=== PATIENT | female | born 1980 | race Two or more races ===

== ENCOUNTER 2017-06-18 21:12 | Emergency (ER) | payer OTHER ==
[~2017-06-18 21:12] MED LIST: HYDR-2376 PO; SYMB80AE INH
[2017-06-18 21:14] VITALS: BP 154/75; PULSE 85; RESP 16; TEMP 98; O2SAT 96
[2017-06-18] MEDS ORDERED: VENTAER INH (21:50)
[2017-06-18] MEDS ORDERED: SODIUM CHLOR 0.9% 1000 ML INJ 1,000 ML IV SCH (21:53)
[2017-06-18] MEDS ORDERED: MORPHINE SULFATE 4 MG/ML INJ IV PUSH ONE (22:00)
[2017-06-18] MEDS ORDERED: ONDANSETRON HCL 4 MG/2 ML VIAL IVP ONE (22:00)
[2017-06-18 22:02] VITALS: BP 119/70; PULSE 74; RESP 16; O2SAT 98
--- NOTE | 2017-06-18 22:19 | PD ---
HPI Chief Complaint: Abdominal Pain Time Seen by Provider: 21:42 Travel History International Travel<30 days: No Contact w/Intl Traveler<30days: No Traveled to known affect area: No History of Present Illness HPI 36-year-old female that presents to the ED for evaluation of right lower quadrant abdominal pain. Per patient he goes to the right flank. Per patient she's had this since Thursday. Per patient is not getting better. She went to the urgent care at [place] today and had a urine test that showed positive blood. The doctor at the time told her to come here to the ED to get evaluated for possible kidney stones versus ovarian cyst. Per patient she has a history of both. She has a history of hysterectomy secondary to fibroid tumor which was removed. She still has her ovaries. She states that the pain comes and goes but now is more severe which is what prompted her to come to the ER. She was prescribed Lortab by the provider at the urgent care. She did not fill it yet as she was told to come here to get evaluated. She denies any bowel movement issues. No urinary issues. Pain per patient is a out of 10 and states mainly on the right lower quadrant. Denies any vaginal discharge. No allergies to medication. No vaginal bleeding. PFSH Past Medical History Asthma: Yes Kidney Stones: Yes Tetanus Vaccination: < 5 Years Influenza Vaccination: No ?: Not Ovarian Cysts: Yes Past Surgical History Hysterectomy: Yes (partial) Social History Alcohol Use: Yes (SOCAIL) Tobacco Use: No Substance Use: No Allergies-Medications (Allergen,Severity, Reaction): Coded Allergies: No Known Drug Allergies (Verified Allergy, Unknown, 06/18/17) Reported Meds & Prescriptions Reported Meds & Active Scripts Active Hydrocodone-Acetaminophen 7.5-300 Mg Tab 1 Tab PO Q4H PRN Reported Ventolin Hfa 18 GM Inh (Albuterol Sulfate) 90 Mcg/Act Aer 2 Puff INH Q4-6H PRN Symbicort Inh (Budesonide/Formoterol Fumarate) 80-4.5 Mcg/Act Aero 2 Puff INH Q12HR Review of Systems Except as stated in HPI: all other systems reviewed are Neg Physical Exam Narrative GENERAL: SKIN: Warm and dry. HEAD: Atraumatic. Normocephalic. EYES: Pupils equal and round. No scleral icterus. No injection or drainage. ENT: No nasal bleeding or discharge. Mucous membranes pink and moist. Tongue is midline. No uvula deviation. NECK: Trachea midline. No JVD. CARDIOVASCULAR: Regular rate and rhythm. No murmurs, S3, S4. RESPIRATORY: No accessory muscle use. Clear to auscultation. Breath sounds equal bilaterally. GASTROINTESTINAL: Abdomen soft, tender to palpation the right lower quadrant, nondistended. Hepatic and splenic margins not palpable. MUSCULOSKELETAL: Extremities without clubbing, cyanosis, or edema. No obvious deformities. Full range of motion of the upper and lower extremities bilaterally. 2+ pulses bilaterally. NEUROLOGICAL: Awake and alert. No obvious cranial nerve deficits. Motor grossly within normal limits. Five out of 5 muscle strength in the arms and legs. Normal speech. PSYCHIATRIC: Appropriate mood and affect; insight and judgment normal. Data Data Last Documented VS Vital Signs Date Time Temp Pulse Resp B/P (MAP) Pulse Ox O2 Delivery O2 Flow Rate FiO2 06/18/17 22:02 74 16 119/70 (86) 98 Room Air 06/18/17 21:14 98.0 Orders Orders Complete Blood Count With Diff (06/18/17 21:53) Comprehensive Metabolic Panel (06/18/17 21:53) Lipase (06/18/17 21:53) Urinalysis - C+S If Indicated (06/18/17 21:53) Ct Abd/Pel W/O Iv Contrast (06/18/17 21:53) Iv Access Insert/Monitor (06/18/17 21:53) Morphine Inj (Morphine Inj) (06/18/17 22:00) Ondansetron Inj (Zofran Inj) (06/18/17 22:00) Sodium Chlor 0.9% 1000 Ml Inj (Ns 1000 M (06/18/17 21:53) Ed Discharge Order (06/18/17 23:13) Labs Laboratory Tests Test 06/18/17 22:00 White Blood Count 8.2 TH/MM3 Red Blood Count 4.90 MIL/MM3 Hemoglobin 13.8 GM/DL Hematocrit 41.2 % Mean Corpuscular Volume 84.0 FL Mean Corpuscular Hemoglobin 28.1 PG Mean Corpuscular Hemoglobin Concent 33.5 % Red Cell Distribution Width 14.6 % Platelet Count 362 TH/MM3 Mean Platelet Volume 6.7 FL Neutrophils (%) (Auto) 52.0 % Lymphocytes (%) (Auto) 33.1 % Monocytes (%) (Auto) 7.4 % Eosinophils (%) (Auto) 6.7 % Basophils (%) (Auto) 0.8 % Neutrophils # (Auto) 4.3 TH/MM3 Lymphocytes # (Auto) 2.7 TH/MM3 Monocytes # (Auto) 0.6 TH/MM3 Eosinophils # (Auto) 0.5 TH/MM3 Basophils # (Auto) 0.1 TH/MM3 CBC Comment DIFF FINAL Differential Comment Urine Color YELLOW Urine Turbidity CLEAR Urine pH 6.5 Urine Specific [place] 1.024 Urine Protein NEG mg/dL Urine Glucose (UA) NEG mg/dL Urine Ketones NEG mg/dL Urine Occult Blood SMALL Urine Nitrite NEG Urine Bilirubin NEG Urine Urobilinogen LESS THAN 2.0 MG/DL Urine Leukocyte Esterase NEG Urine RBC 7 /hpf Urine WBC LESS THAN 1 /hpf Urine Squamous Epithelial Cells <1 /hpf Urine Bacteria RARE /hpf Urine Mucus FEW /lpf Microscopic Urinalysis Comment CULT NOT INDICATED Blood Urea Nitrogen 12 MG/DL Creatinine 0.80 MG/DL Random Glucose 114 MG/DL Total Protein 8.1 GM/DL Albumin 3.7 GM/DL Calcium Level 8.9 MG/DL Alkaline Phosphatase 64 U/L Aspartate Amino Transf (AST/SGOT) 20 U/L Alanine Aminotransferase (ALT/SGPT) 32 U/L Total Bilirubin 0.2 MG/DL Sodium Level 137 MEQ/L Potassium Level 3.5 MEQ/L Chloride Level 102 MEQ/L Carbon Dioxide Level 27.2 MEQ/L Anion Gap 8 MEQ/L Estimat Glomerular Filtration Rate 82 ML/MIN Lipase 150 U/L [facility] Medical Decision Making Medical Screen Exam Complete: Yes Emergency Medical Condition: Yes Medical Record Reviewed: Yes Interpretation(s) CBC & BMP Diagram 06/18/17 22:00 Total Protein 8.1, Albumin 3.7, Calcium Level 8.9, Alkaline Phosphatase 64, Aspartate Amino Transf (AST/SGOT) 20, Alanine Aminotransferase (ALT/SGPT) 32, Total Bilirubin 0.2 Urine negative other than blood. Last Impressions Abdomen/Pelvis CT 06/18/17 294 Signed Impressions: Service Date/Time: June 22:08 - CONCLUSION: Normal examination. Donnie Ramirez Jr., MD Differential Diagnosis Ovarian cyst versus kidney stone versus UTI versus pyelonephritis versus appendicitis less likely versus acute on chronic pain versus gastroenteritis Narrative Course 36-year-old female that presents to the ED for evaluation of right lower quadrant pain. Patient was properly examined and was found to have signs and symptoms of unclear etiology but possible kidney stone unlikely. Patient had a urine that was positive for blood recently. Labs and imaging were ordered. Patient was given IV pain medications and antiemetics. Labs and imaging show no sign of acute disease. Case was discussed in my attending Dr. Mendiola who evaluated the patient himself in the room. He discussed the case with the patient and recommends follow-up outpatient. Patient was already given Lortab by previous provider. At this time rule out ibuprofen for her pain. She was told to follow with [facility] outpatient. See ED worsening symptoms. Follow with PCP. Diagnosis Primary Impression: Abdominal pain Qualified Codes: R10.30 - Lower abdominal pain, unspecified Patient Instructions: General Instructions, Narcotic given in the ED Additional Instructions: Take medications as prescribed. Follow-up with PCP. See ED for any worsening symptoms. Do not drink or drive while taking pain medication. Apply ice or heat as needed for pain Med/Other Pt SpecificInfo: Prescription(s) given Disposition: 01 DISCHARGE HOME Condition: Stable Rylan Byrd Jun 18, 2017 22:19
[2017-06-18 22:20] LABS: AUTOMATED NEUTROPHIL # 4.3 TH/MM3 (1.8-7.7); BACTERIA, URINE RARE /hpf; BASOPHIL # 0.1 TH/MM3 (0-0.2); BASOPHIL % 0.8 % (0.0-2.0); BLOOD, URINE SMALL (NEG); COMMENT (UR) CULT NOT INDICATED; CULTURE IF INDICATED CULT NOT INDICATED; EOSINOPHIL # 0.5 TH/MM3 (0-0.4); EOSINOPHIL % 6.7 % (0.0-4.0); GLUCOSE,URINE NEG (NEG); HEMATOCRIT 41.2 % (35.0-46.0); HEMO FLAGS DIFF FINAL; KETONE, URINE NEG (NEG); LYMPH % 33.1 % (9.0-44.0); LYMPHOCYTE # 2.7 TH/MM3 (1.0-4.8); MEAN CORPUSCULAR HEMOGLOBIN 28.1 PG (27.0-34.0); MEAN CORPUSCULAR HGB CONC 33.5 % (32.0-36.0); MONO % 7.4 % (0.0-8.0); MUCUS URINE FEW /lpf (OCC); NITRITE,URINE NEG (NEG); PH, URINE 6.5 (5.0-8.5); PLATELET COUNT 362 TH/MM3 (150-450); RED CELL DISTRIBUTION WIDTH 14.6 % (11.6-17.2); SQUAMOUS EPITHELIAL CELL URINE <1 /hpf (0-5); URINE COLOR YELLOW (YELLW/STRAW); WHITE BLOOD COUNT 8.2 TH/MM3 (4.0-11.0)
--- NOTE | 2017-06-18 22:25 | RADRPT ---
EXAM DATE/TIME: 06/18/2017 22:08 [facility] COMPARISON: No previous studies available for comparison. INDICATIONS : Right lower quadrant pain since [place]. Evaluate for renal stone ORAL CONTRAST: No oral contrast ingested. RADIATION DOSE: 8.57 CTDIvol (mGy) MEDICAL HISTORY : Renal calculi. Asthma SURGICAL HISTORY : Hysterectomy. ENCOUNTER: Initial ACUITY: 4 - 6 days PAIN SCALE: 10/10 LOCATION: Right lower quadrant TECHNIQUE: Volumetric scanning of the abdomen and pelvis was performed. Using automated exposure control and ad justment of the mA and/or kV according to patient size, radiation dose was kept as low as reasonably achievable to obtain optimal diagnostic quality images. DICOM format image data is available electro nically for review and comparison. FINDINGS: LOWER LUNGS: The visualized lower lungs are clear. LIVER: Homogeneous density without lesion. There is no dilation of the biliary tree. No calcified gallston es. SPLEEN: Normal size without lesion. PANCREAS: Within normal limits. KIDNEYS: Normal in size and shape. There is no mass, stone, or hydronephrosis. ADRENAL GLANDS: Within normal limits. VASCULAR: There is no aortic aneurysm. BOWEL/MESENTERY: The stomach, small bowel, and colon demonstrate no acute abnormality. There is no free intraperitone al air or fluid. The appendix is normal by CT criteria. ABDOMINAL WALL: Within normal limits. RETROPERITONEUM: There is no lymphadenopathy. BLADDER: No wall thickening or mass. REPRODUCTIVE: Within normal limits. INGUINAL: There is no lymphadenopathy or hernia. MUSCULOSKELETAL: Within normal limits for patient age. CONCLUSION: Normal examination. Donnie Ramirez Jr., MD on June 18, 2017 at 22:22 Board Certified Radiologist. This report was verified electronically.
[2017-06-18 22:27] LABS: ANION GAP 8 MEQ/L (5-15); AST (GOT) 20 U/L (15-37); BICARBONATE 27.2 MEQ/L (21.0-32.0); BLOOD UREA NITROGEN 12 MG/DL (7-18); CHLORIDE 102 MEQ/L (98-107); GLOMERULAR FILTRATION RATE 82 ML/MIN (>89); POTASSIUM 3.5 MEQ/L (3.5-5.1); SODIUM (NA) 137 MEQ/L (136-145)
[2017-06-18 22:29] LABS: ALT (GPT) 32 U/L (10-53)
[2017-06-18 22:30] LABS: ALKALINE PHOSPHATASE 64 U/L (45-117); TOTAL BILIRUBIN ADULT 0.2 MG/DL (0.2-1.0)
--- NOTE | 2017-06-18 23:14 | PD ---
Physical Exam Narrative Patient was seen by me and my anesthesiologist assistant. Data Data Last Documented VS Vital Signs Date Time Temp Pulse Resp B/P (MAP) Pulse Ox O2 Delivery O2 Flow Rate FiO2 06/18/17 22:02 74 16 119/70 (86) 98 Room Air 06/18/17 21:14 98.0 Orders Orders Complete Blood Count With Diff (06/18/17 21:53) Comprehensive Metabolic Panel (06/18/17 21:53) Lipase (06/18/17 21:53) Urinalysis - C+S If Indicated (06/18/17 21:53) Ct Abd/Pel W/O Iv Contrast (06/18/17 21:53) Iv Access Insert/Monitor (06/18/17 21:53) Morphine Inj (Morphine Inj) (06/18/17 22:00) Ondansetron Inj (Zofran Inj) (06/18/17 22:00) Sodium Chlor 0.9% 1000 Ml Inj (Ns 1000 M (06/18/17 21:53) Ed Discharge Order (06/18/17 23:13) Labs Laboratory Tests Test 06/18/17 22:00 White Blood Count 8.2 TH/MM3 Red Blood Count 4.90 MIL/MM3 Hemoglobin 13.8 GM/DL Hematocrit 41.2 % Mean Corpuscular Volume 84.0 FL Mean Corpuscular Hemoglobin 28.1 PG Mean Corpuscular Hemoglobin Concent 33.5 % Red Cell Distribution Width 14.6 % Platelet Count 362 TH/MM3 Mean Platelet Volume 6.7 FL Neutrophils (%) (Auto) 52.0 % Lymphocytes (%) (Auto) 33.1 % Monocytes (%) (Auto) 7.4 % Eosinophils (%) (Auto) 6.7 % Basophils (%) (Auto) 0.8 % Neutrophils # (Auto) 4.3 TH/MM3 Lymphocytes # (Auto) 2.7 TH/MM3 Monocytes # (Auto) 0.6 TH/MM3 Eosinophils # (Auto) 0.5 TH/MM3 Basophils # (Auto) 0.1 TH/MM3 CBC Comment DIFF FINAL Differential Comment Urine Color YELLOW Urine Turbidity CLEAR Urine pH 6.5 Urine Specific [place] 1.024 Urine Protein NEG mg/dL Urine Glucose (UA) NEG mg/dL Urine Ketones NEG mg/dL Urine Occult Blood SMALL Urine Nitrite NEG Urine Bilirubin NEG Urine Urobilinogen LESS THAN 2.0 MG/DL Urine Leukocyte Esterase NEG Urine RBC 7 /hpf Urine WBC LESS THAN 1 /hpf Urine Squamous Epithelial Cells <1 /hpf Urine Bacteria RARE /hpf Urine Mucus FEW /lpf Microscopic Urinalysis Comment CULT NOT INDICATED Blood Urea Nitrogen 12 MG/DL Creatinine 0.80 MG/DL Random Glucose 114 MG/DL Total Protein 8.1 GM/DL Albumin 3.7 GM/DL Calcium Level 8.9 MG/DL Alkaline Phosphatase 64 U/L Aspartate Amino Transf (AST/SGOT) 20 U/L Alanine Aminotransferase (ALT/SGPT) 32 U/L Total Bilirubin 0.2 MG/DL Sodium Level 137 MEQ/L Potassium Level 3.5 MEQ/L Chloride Level 102 MEQ/L Carbon Dioxide Level 27.2 MEQ/L Anion Gap 8 MEQ/L Estimat Glomerular Filtration Rate 82 ML/MIN Lipase 150 U/L MDM Supervised Visit with LUCI: Yes Aron Scott MD Jun 18, 2017 23:14
[2017-06-18] MEDS ORDERED: IBUP1TAB7 PO (23:17)
== END 2017-06-18 23:25 | disposition home or self-care (01) ==
LOC: NEPE 21:12
DX: R10.31 Right lower quadrant pain (principal); Z87.442 Personal history of urinary calculi
CPT/HCPCS: 74176; 80053; 81001; 83690; 85025; 96361; 96374; 96375; 99285; J2270; J2405; J7030